=== PATIENT | female | born 1970 | race Caucasian/White ===

== ENCOUNTER 2018-03-16 13:32 | Observation (INO) ==
[2018-03-16] MEDS ORDERED: 0.9 % Sodium Chloride 1,000 ML IVC ONE (13:38)
[2018-03-16 14:13] LABS: Bilirubin,Urine Negative (Negative); Blood,Urine Negative (Negative); Clarity,Urine Clear (Clear); Color,Urine Yellow (Yellow); Glucose,Urine (UA) Normal (Normal); Ketones,Urine Negative (Negative); Leukocyte Esterase,Urine Trace (Negative); Nitrite,Urine Negative (Negative); PH,Urine 8.5 pH Units (5.0-8.0); Protein,Urine 100 mg/dL (Neg-Trace); Specific Gravity,Urine 1.015 (1.010-1.025); Urobilinogen,Urine Normal (Normal)
[2018-03-16 14:15] LABS: Bacteria,Urine Few per hpf (None-Few); Hyaline Casts,Urine None Seen per lpf (None-Few); Squamous Epithelial Cell,Urine Many per lpf (None-Few)
--- NOTE | 2018-03-16 14:47 | Emergency Department Note ---
Disposition Clinical Impression: LLQ abdominal pain Anemia Qualifiers: Anemia type: unspecified type Qualified Code(s): D64.9 - Anemia, unspecified Syncope Qualifiers: Syncope type: unspecified Qualified Code(s): R55 - Syncope and collapse Disposition: Admitted As Inpatient Condition: Fair Time of Disposition: 16:59 Syncope HPI - General Stated Complaint: passed out Time Seen by Provider: 03/16/18 13:36 Source: patient, family, EMS Mode of arrival: EMS Limitations: no limitations Nursing Notes Reviewed: Yes Vital Signs Reviewed: Yes - History of Present Illness HPI Narrative: Patient is a 47-year-old female with a known history of anemia that was sitting outside smoking today when her friend noticed that she sort of slumped to the side and lost consciousness for about 30 seconds. She regained consciousness without incident, did not fall and hit her head, was brought to the emergency department by EMS who noted that the patient was alert and oriented 4 and had stable vitals. Patient states that she has had to have transfusions for symptomatic anemia in the past and is supposed to be having a D&C at some point in the future. Pt has a hx of vaginal bleeding that can last up to three months at a time, although she denies current vaginal bleeding and states she has not had any for the past week. Patient is denying fevers or chills, headache, chest pain, vomiting, diarrhea or constipation, numbness or tingling anywhere. She is endorsing feeling tired, some shortness of breath that she has had for several weeks, nausea, abdominal pain in the right lower quadrant for the last 2 weeks, urinary frequency and some dysuria. Surgical history involves 2 C-sections, she smokes one and a half packs per day and has for 30 years, but denies drinking or drugs. - Related Data Home Medications Medication Instructions Recorded Confirmed Ferrous Sulfate [High Potency Iron] 134 mg PO DAILY 02/17/18 02/17/18 Previous Rx's Medication Instructions Recorded Amoxicillin 875 mg PO BID #20 tablet 02/17/18 Benzonatate [Tessalon] 200 mg PO TID PRN #20 capsule 02/17/18 Magic Mouthwash [Magic Mouthwash 10 ml PO QID PRN #240 ml 02/17/18 BLM] predniSONE [PredniSONE] 20 mg PO BID #10 tablet 02/17/18 Allergies Allergy/AdvReac Type Severity Reaction Status Date / Time gabapentin [From Neurontin] Allergy Difficulty Verified 02/17/18 15:10 Breathing sulfamethoxazole AdvReac See Verified 02/17/18 15:10 [From Bactrim] Comments trimethoprim [From Bactrim] AdvReac See Verified 02/17/18 15:10 Comments All systems ED: reviewed and negative except as stated. Review of Systems: As Per HPI Constitutional: Denies: fever, chills Eyes: Denies: vision change ENT ED: Denies: ear pain Cardiovascular: Reports: dyspnea on exertion, syncope. Denies: chest pain Respiratory: Reports: dyspnea. Denies: cough, wheezes Gastrointestinal: Reports: abdominal pain, nausea. Denies: vomiting, diarrhea, constipation Genitourinary: Reports: dysuria, frequency Neurological: Denies: headache, weakness, numbness, paresthesias Past Medical History - Past Medical History Medical history: Reports: non-contributory, hyperlipidemia Surgical history: Reports: Psychiatric history: Reports: anxiety, depression BORDER GUARD history: Reports: no BORDER GUARD history - Social History Smoking Status: Current every day smoker Smokeless Tobacco Status: No Alcohol use: Reports: none Drug use: Reports: none Physical Exam - General Limitations: no limitations General appearance: alert, in no apparent distress - Head Head exam: atraumatic, normocephalic - Eye Eye exam: Present: normal appearance, PERRL, EOMI, other (conjunctival pallor). Absent: scleral icterus, conjunctival injection - ENT ENT exam: normal exam, normal oropharynx, mucous membranes moist - Neck Neck exam: Present: normal inspection, full ROM - Chest Chest inspection: Present: normal inspection, symmetric chest wall rise. Absent: tenderness - Respiratory Respiratory exam: Present: normal lung sounds bilaterally. Absent: respiratory distress, wheezes - Cardiovascular Cardiovascular exam: Present: regular rate, normal rhythm - Abdominal Exam Abdominal exam: Present: soft, tenderness Abdominal tenderness: Present: RLQ - Extremities Exam Extremities exam: Present: normal inspection, full ROM - Back Exam Back exam: Present: normal inspection, full ROM - Neurological Exam Neurological exam: Present: alert, oriented X3, CN II-XII intact, normal gait - Expanded Neurological Exam Patient oriented to: Present: person, place, time Speech: Present: fluid speech Cranial nerves: EOM function (II, III, IV, ): Normal, facial sensation (V): Normal, facial palsy (VII): Normal, spinal accessory function (XI): Normal, tongue deviation (XII): Normal Cerebellar function: finger to nose: Normal, heel to cole: Normal Motor strength - LUE: 5/5 Motor strength - RUE: 5/5 Motor strength - LLE: 5/5 Motor strength - RLE: 5/5 Sensory exam upper extremity: light touch: Normal Sensory exam lower extremity: light touch: Normal Coma Scale Eye Opening: Spontaneous Coma Scale Motor Response: Obeys Commands Coma Scale Verbal Response: Oriented Coma Scale Total: 15 - Psychiatric Psychiatric exam: Present: normal affect, normal mood - Skin Skin exam: Present: warm, dry, intact Course Course Narrative: Concern for anemia, will get screening labs to include CBC, BMP, EKG. Also head CT. Additionally, pt appears slightly jaundiced, will check hepatic panel and hepatitis panel. Will also obtain type and screen as pt has hx of transfusions. - Reevaluation(s) Reevaluation #1: Hg was 6.9, pt reports that it has been as low as 5 in the past. Expressed my concern that with lack of vaginal bleeding for the last week and LLQ pain that she may be bleeding in her abdomen and that I wanted her to have a CT and pelvic exam. Pt consented to CT, but refused pelvic exam. Ordered 1 unit for transfusion in ED and will place for admission to hospitalist. Time: 15:43 Vital Signs Temperature 98.7 F 03/16/18 13:48 Pulse Rate 80 03/16/18 13:48 Respiratory Rate 18 03/16/18 13:48 Blood Pressure 129/68 03/16/18 13:48 O2 Sat by Pulse Oximetry 99 03/16/18 13:48 Temperature 98.7 F 03/16/18 13:48 Pulse Rate 80 03/16/18 13:48 Respiratory Rate 18 03/16/18 13:48 Blood Pressure 129/68 03/16/18 13:48 O2 Sat by Pulse Oximetry 99 03/16/18 13:48 Oxygen Delivery Oxygen Delivery Room Air Syncope - MDM Narrative Medical decision making narrative: Pt was denying current vaginal bleeding, dark stools, hematemesis, hematuria, hematochezia. Pt's Hg was 6.9 and so she was ordered a unit of blood. Additionally, a CT scan of the abdomen was unrevealing for free fluid in the abdomen. Pt did not have any further syncopal episodes in the ED, vitals remained stable, and pt did not have any further complaints. CT of Abd did reveal a 3.2cm cyst on her left ovary for which a TV US was ordered from the department. Spoke with hospitalist, Dr. Beckham, who agreed to accept the patient for admission and further workup. Pt verbalized understanding and agreement with the plan. Pt was given an opportunity to ask questions and all of her concerns were addressed. - Medical Records Medical records reviewed: Yes I reviewed the patient's medical records. - Lab Data Lab results reviewed: Yes I reviewed the patient's lab results. Result diagrams: 03/16/18 14:21 03/16/18 14:21 Lab Results 03/16/18 03/16/18 03/16/18 Range/Units 13:50 14:21 14:21 WBC 5.9 (4.3-11.1) K/mcL RBC 2.84 L (3.82-4.97) M/mcL Hgb 6.9 L (11.5-15.4) g/dL Hct 23.3 L (35.3-44.9) % MCV 82.0 L (83.0-100.0) fL MCH 24.3 L (28.0-33.3) pg MCHC 29.6 L (31.6-35.5) g/dL RDW 18.0 H (11.5-14.5) % Plt Count 286 (140-400) K/mcL MPV 9.5 (9.4-12.4) fL Immature Gran % 0.3 (0-4) % Seg Neutrophils % 67.4 % Lymphocytes % 21.0 % Monocytes % 9.1 % Eosinophils % 1.5 % Basophils % 0.7 % Neutrophils # 3.9 (1.6-8.9) K/mcL Lymphocytes # 1.2 (0.6-4.6) K/mcL Monocytes # 0.5 (0.0-1.3) K/mcL Eosinophils # 0.1 (0.0-0.6) K/mcL Basophils # 0.0 (0.0-0.2) K/mcL PT 10.6 (9.4-12.1) Seconds INR 0.9 APTT 26.3 (26.0-36.0) Seconds Sodium (136-145) mEq/L Potassium (3.5-5.1) mEq/L Chloride (98-107) mEq/L Carbon Dioxide (23-29) mEq/L BUN (6-20) mg/dL Creatinine (0.60-1.20) mg/dL Est GFR ( Amer) (> 60) Est GFR (Non-Af Amer) (> 60) BUN/Creatinine Ratio (6-26) Glucose (70-105) mg/dL Calculated Osmolality (280-300) Calcium (8.6-10.3) mg/dL Total Bilirubin (0.3-1.0) mg/dL Direct Bilirubin (0.0-0.2) mg/dL Indirect Bilirubin (0.0-1.2) mg/dL AST (13-39) Units/L ALT (7-52) Units/L Alkaline Phosphatase (34-104) Units/L Troponin I (< 0.04) ng/mL Serum Total Protein (6.4-8.9) g/dL Albumin (3.5-5.7) g/dL Globulin (2.4-3.5) g/dL Albumin/Globulin Ratio (1.1-2.2) Urine Color Yellow (Yellow) Urine Clarity Clear (Clear) Urine pH 8.5 H (5.0-8.0) pH Units Ur Specific [place] 1.015 (1.010-1.025) Urine Protein 100 H (Neg-Trace) mg/dL Urine Glucose (UA) Normal (Normal) mg/dL Urine Ketones Negative (Negative) mg/dL Urine Blood Negative (Negative) Urine Nitrite Negative (Negative) Urine Bilirubin Negative (Negative) Urine Urobilinogen Normal (Normal) mg/dL Ur Leukocyte Esterase Trace H (Negative) Urine Microscopic WBC 5-15 H (0-3) per hpf Ur Squamous Epith Cells Many H (None-Few) per lpf Urine Bacteria Few (None-Few) per hpf Hyaline Casts None Seen (None-Few) per lpf Ur Culture Indicated? NO. A (NO) Hepatitis A IgM Ab (Nonreactive) Hep Bs Antigen (Nonreactive) Hep B Core IgM Ab (Nonreactive) Hepatitis C Ab Screen (Nonreactive) Blood Type Antibody Screen Crossmatch 02/05/2903/16/18 03/16/18 Range/Units 14:21 14:21 14:21 WBC (4.3-11.1) K/mcL RBC (3.82-4.97) M/mcL Hgb (11.5-15.4) g/dL Hct (35.3-44.9) % MCV (83.0-100.0) fL MCH (28.0-33.3) pg MCHC (31.6-35.5) g/dL RDW (11.5-14.5) % Plt Count (140-400) K/mcL MPV (9.4-12.4) fL Immature Gran % (0-4) % Seg Neutrophils % % Lymphocytes % % Monocytes % % Eosinophils % % Basophils % % Neutrophils # (1.6-8.9) K/mcL Lymphocytes # (0.6-4.6) K/mcL Monocytes # (0.0-1.3) K/mcL Eosinophils # (0.0-0.6) K/mcL Basophils # (0.0-0.2) K/mcL PT (9.4-12.1) Seconds INR APTT (26.0-36.0) Seconds Sodium 141 (136-145) mEq/L Potassium 4.1 (3.5-5.1) mEq/L Chloride 109 H (98-107) mEq/L Carbon Dioxide 26 (23-29) mEq/L BUN 11 (6-20) mg/dL Creatinine 0.69 (0.60-1.20) mg/dL Est GFR ( Amer) > 60 (> 60) Est GFR (Non-Af Amer) > 60 (> 60) BUN/Creatinine Ratio 16 (6-26) Glucose 113 H (70-105) mg/dL Calculated Osmolality 292 (280-300) Calcium 8.5 L (8.6-10.3) mg/dL Total Bilirubin 0.2 L (0.3-1.0) mg/dL Direct Bilirubin 0.0 (0.0-0.2) mg/dL Indirect Bilirubin 0.2 (0.0-1.2) mg/dL AST 11 L (13-39) Units/L ALT 10 (7-52) Units/L Alkaline Phosphatase 73 (34-104) Units/L Troponin I < 0.03 (< 0.04) ng/mL Serum Total Protein 6.1 L (6.4-8.9) g/dL Albumin 3.6 (3.5-5.7) g/dL Globulin 2.5 (2.4-3.5) g/dL Albumin/Globulin Ratio 1.4 (1.1-2.2) Urine Color (Yellow) Urine Clarity (Clear) Urine pH (5.0-8.0) pH Units Ur Specific [place] (1.010-1.025) Urine Protein (Neg-Trace) mg/dL Urine Glucose (UA) (Normal) mg/dL Urine Ketones (Negative) mg/dL Urine Blood (Negative) Urine Nitrite (Negative) Urine Bilirubin (Negative) Urine Urobilinogen (Normal) mg/dL Ur Leukocyte Esterase (Negative) Urine Microscopic WBC (0-3) per hpf Ur Squamous Epith Cells (None-Few) per lpf Urine Bacteria (None-Few) per hpf Hyaline Casts (None-Few) per lpf Ur Culture Indicated? (NO) Hepatitis A IgM Ab Nonreactive (Nonreactive) Hep Bs Antigen Nonreactive (Nonreactive) Hep B Core IgM Ab Nonreactive (Nonreactive) Hepatitis C Ab Screen Nonreactive (Nonreactive) Blood Type O POSITIVE Antibody Screen NEGATIVE Crossmatch See Detail - Radiology Data Radiology results reviewed: Yes I reviewed the patient's radiology results. Chest X-Ray 03/16/18 13:38 IMPRESSION: Negative chest. D/ / Daisy Vera MD / Daisy Vera MD Interpreting Provider: Daisy Vera MD Head CT 03/16/18 13:38 IMPRESSION: No acute intracranial abnormality. D/ / Georgi Bal MD / Georgi Bal MD Interpreting Provider: Georgi Bal MD Abdomen/Pelvis CT 03/16/18 15:28 IMPRESSION: 1. No acute abnormalities seen in the abdomen or pelvis 2. 3.2 cm left ovarian cyst, follow-up recommendations below 3. Normal appearing gallbladder 4. No obstructive uropathy 5. Normal appearing appendix 6. Stool throughout the majority of the colon suggesting constipation RECOMMENDATIONS: 3.2 cm probably benign ovarian cyst Recommend follow-up pelvic US in 6-12 weeks. Reference: J Am Deanna Radiol 2013;[id number] D/ / Georgi Bal MD / Georgi Bal MD Interpreting Provider: Georgi Bal MD - EKG Data EKG attestation: Yes I reviewed and interpreted this EKG. EKG results narrative: HR 83, rhythm sinus, axis normal. [place] 128, QRS 95, QTc 455. No evidence of LVH. No evidence of ST elevation or depression. Attestation Statement - Attestation Attestation: I, Julio Campos DO, examined this patient [id number] and my medical decision-making was reviewed with Dr. Yvonne Shoemaker, Resident Physician. I agree with the documented findings, disposition and treatment plan as described except to the extent set forth below. Please see my progress notes for details.
[2018-03-16 14:55] LABS: Basophils % 0.7 %; Eosinophils # 0.1 K/mcL (0.0-0.6); Eosinophils % 1.5 %; Hematocrit 23.3 % (35.3-44.9); Hemoglobin 6.9 g/dL (11.5-15.4); Immature Granulocytes % 0.3 % (0-4); Lymphocytes # 1.2 K/mcL (0.6-4.6); Mean Corpuscular HGB Conc 29.6 g/dL (31.6-35.5); Mean Corpuscular Hemoglobin 24.3 pg (28.0-33.3); Mean Platelet Volume 9.5 fL (9.4-12.4); Monocytes # 0.5 K/mcL (0.0-1.3); Monocytes % 9.1 %; Neutrophils # 3.9 K/mcL (1.6-8.9); Platelet Count 286 K/mcL (140-400); Red Blood Count 2.84 M/mcL (3.82-4.97); Segmented Neutrophils % 67.4 %
[2018-03-16 15:12] LABS: INR 0.9; Prothrombin Time 10.6 Seconds (9.4-12.1)
[2018-03-16 15:14] LABS: Activated Partial Thrombo Time 26.3 Seconds (26.0-36.0)
[2018-03-16 15:17] LABS: Troponin I < 0.03 ng/mL (< 0.04)
[2018-03-16 15:23] LABS: Alanine Aminotransferase 10 Units/L (7-52); Albumin 3.6 g/dL (3.5-5.7); Albumin/Globulin Ratio 1.4 (1.1-2.2); Alkaline Phosphatase 73 Units/L (34-104); Aspartate Amino Transferase 11 Units/L (13-39); BUN/Creatinine Ratio 16 (6-26); Bilirubin,Indirect 0.2 mg/dL (0.0-1.2); Bilirubin,Total 0.2 mg/dL (0.3-1.0); Blood Urea Nitrogen 11 mg/dL (6-20); Calcium 8.5 mg/dL (8.6-10.3); Carbon Dioxide 26 mEq/L (23-29); Chloride 109 mEq/L (98-107); Globulin 2.5 g/dL (2.4-3.5); Glucose 113 mg/dL (70-105); Osmolality,Calculated 292 (280-300); Potassium 4.1 mEq/L (3.5-5.1); Sodium 141 mEq/L (136-145); Total Protein 6.1 g/dL (6.4-8.9); eGFR For Non-African Americans > 60 (> 60)
--- NOTE | 2018-03-16 15:23 | Emergency Department Note ---
Disposition Clinical Impression: LLQ abdominal pain Anemia Qualifiers: Anemia type: unspecified type Qualified Code(s): D64.9 - Anemia, unspecified Syncope Qualifiers: Syncope type: unspecified Qualified Code(s): R55 - Syncope and collapse Disposition: Admitted As Inpatient Condition: Fair Time of Disposition: 17:36 General Adult HPI - General Stated complaint: passed out Time Seen by Provider: 03/16/18 13:36 Source: patient, family, EMS Mode of arrival: EMS Limitations: no limitations - History of Present Illness Pain Scale: 5 - Related Data Home Medications Medication Instructions Recorded Confirmed Ferrous Sulfate [High Potency Iron] 134 mg PO DAILY 02/17/18 02/17/18 Previous Rx's Medication Instructions Recorded Amoxicillin 875 mg PO BID #20 tablet 02/17/18 Benzonatate [Tessalon] 200 mg PO TID PRN #20 capsule 02/17/18 Magic Mouthwash [Magic Mouthwash 10 ml PO QID PRN #240 ml 02/17/18 BLM] predniSONE [PredniSONE] 20 mg PO BID #10 tablet 02/17/18 Allergies Allergy/AdvReac Type Severity Reaction Status Date / Time gabapentin [From Neurontin] Allergy Difficulty Verified 02/17/18 15:10 Breathing sulfamethoxazole AdvReac See Verified 02/17/18 15:10 [From Bactrim] Comments trimethoprim [From Bactrim] AdvReac See Verified 02/17/18 15:10 Comments Constitutional: Denies: fever, chills Eyes: Denies: vision change ENT ED: Denies: ear pain Cardiovascular: Reports: dyspnea on exertion, syncope. Denies: chest pain Respiratory: Reports: dyspnea. Denies: cough, wheezes Gastrointestinal: Reports: abdominal pain, nausea. Denies: vomiting, diarrhea, constipation Genitourinary: Reports: dysuria, frequency Neurological: Denies: headache, weakness, numbness, paresthesias Past Medical History - Past Medical History Medical history: Reports: non-contributory, hyperlipidemia Surgical history: Reports: Psychiatric history: Reports: anxiety, depression MANAGER LAW history: Reports: no MANAGER LAW history - Social History Smoking Status: Current every day smoker Smokeless Tobacco Status: No Alcohol use: Reports: none Drug use: Reports: none Physical Exam - General Limitations: no limitations General appearance: alert, in no apparent distress Course Vital Signs Temperature 98.7 F 03/16/18 13:48 Pulse Rate 80 03/16/18 13:48 Respiratory Rate 18 03/16/18 13:48 Blood Pressure 129/68 03/16/18 13:48 O2 Sat by Pulse Oximetry 99 03/16/18 13:48 Temperature 98.7 F 03/16/18 13:48 Pulse Rate 80 03/16/18 13:48 Respiratory Rate 18 03/16/18 13:48 Blood Pressure 129/68 03/16/18 13:48 O2 Sat by Pulse Oximetry 99 03/16/18 13:48 Oxygen Delivery Oxygen Delivery Room Air Medical Decision Making - Lab Data Result diagrams: 03/16/18 14:21 03/16/18 14:21 Lab Results 03/16/18 03/16/18 03/16/18 Range/Units 13:50 14:21 14:21 WBC 5.9 (4.3-11.1) K/mcL RBC 2.84 L (3.82-4.97) M/mcL Hgb 6.9 L (11.5-15.4) g/dL Hct 23.3 L (35.3-44.9) % MCV 82.0 L (83.0-100.0) fL MCH 24.3 L (28.0-33.3) pg MCHC 29.6 L (31.6-35.5) g/dL RDW 18.0 H (11.5-14.5) % Plt Count 286 (140-400) K/mcL MPV 9.5 (9.4-12.4) fL Immature Gran % 0.3 (0-4) % Seg Neutrophils % 67.4 % Lymphocytes % 21.0 % Monocytes % 9.1 % Eosinophils % 1.5 % Basophils % 0.7 % Neutrophils # 3.9 (1.6-8.9) K/mcL Lymphocytes # 1.2 (0.6-4.6) K/mcL Monocytes # 0.5 (0.0-1.3) K/mcL Eosinophils # 0.1 (0.0-0.6) K/mcL Basophils # 0.0 (0.0-0.2) K/mcL PT 10.6 (9.4-12.1) Seconds INR 0.9 APTT 26.3 (26.0-36.0) Seconds Sodium (136-145) mEq/L Potassium (3.5-5.1) mEq/L Chloride (98-107) mEq/L Carbon Dioxide (23-29) mEq/L BUN (6-20) mg/dL Creatinine (0.60-1.20) mg/dL Est GFR ( Amer) (> 60) Est GFR (Non-Af Amer) (> 60) BUN/Creatinine Ratio (6-26) Glucose (70-105) mg/dL Calculated Osmolality (280-300) Calcium (8.6-10.3) mg/dL Total Bilirubin (0.3-1.0) mg/dL Direct Bilirubin (0.0-0.2) mg/dL Indirect Bilirubin (0.0-1.2) mg/dL AST (13-39) Units/L ALT (7-52) Units/L Alkaline Phosphatase (34-104) Units/L Troponin I (< 0.04) ng/mL Serum Total Protein (6.4-8.9) g/dL Albumin (3.5-5.7) g/dL Globulin (2.4-3.5) g/dL Albumin/Globulin Ratio (1.1-2.2) Urine Color Yellow (Yellow) Urine Clarity Clear (Clear) Urine pH 8.5 H (5.0-8.0) pH Units Ur Specific [place] 1.015 (1.010-1.025) Urine Protein 100 H (Neg-Trace) mg/dL Urine Glucose (UA) Normal (Normal) mg/dL Urine Ketones Negative (Negative) mg/dL Urine Blood Negative (Negative) Urine Nitrite Negative (Negative) Urine Bilirubin Negative (Negative) Urine Urobilinogen Normal (Normal) mg/dL Ur Leukocyte Esterase Trace H (Negative) Urine Microscopic WBC 5-15 H (0-3) per hpf Ur Squamous Epith Cells Many H (None-Few) per lpf Urine Bacteria Few (None-Few) per hpf Hyaline Casts None Seen (None-Few) per lpf Ur Culture Indicated? NO. A (NO) Hepatitis A IgM Ab (Nonreactive) Hep Bs Antigen (Nonreactive) Hep B Core IgM Ab (Nonreactive) Hepatitis C Ab Screen (Nonreactive) Blood Type Antibody Screen Crossmatch 03/16/18 03/16/18 03/16/18 Range/Units 14:21 14:21 14:21 WBC (4.3-11.1) K/mcL RBC (3.82-4.97) M/mcL Hgb (11.5-15.4) g/dL Hct (35.3-44.9) % MCV (83.0-100.0) fL MCH (28.0-33.3) pg MCHC (31.6-35.5) g/dL RDW (11.5-14.5) % Plt Count (140-400) K/mcL MPV (9.4-12.4) fL Immature Gran % (0-4) % Seg Neutrophils % % Lymphocytes % % Monocytes % % Eosinophils % % Basophils % % Neutrophils # (1.6-8.9) K/mcL Lymphocytes # (0.6-4.6) K/mcL Monocytes # (0.0-1.3) K/mcL Eosinophils # (0.0-0.6) K/mcL Basophils # (0.0-0.2) K/mcL PT (9.4-12.1) Seconds INR APTT (26.0-36.0) Seconds Sodium 141 (136-145) mEq/L Potassium 4.1 (3.5-5.1) mEq/L Chloride 109 H (98-107) mEq/L Carbon Dioxide 26 (23-29) mEq/L BUN 11 (6-20) mg/dL Creatinine 0.69 (0.60-1.20) mg/dL Est GFR ( Amer) > 60 (> 60) Est GFR (Non-Af Amer) > 60 (> 60) BUN/Creatinine Ratio 16 (6-26) Glucose 113 H (70-105) mg/dL Calculated Osmolality 292 (280-300) Calcium 8.5 L (8.6-10.3) mg/dL Total Bilirubin 0.2 L (0.3-1.0) mg/dL Direct Bilirubin 0.0 (0.0-0.2) mg/dL Indirect Bilirubin 0.2 (0.0-1.2) mg/dL AST 11 L (13-39) Units/L ALT 10 (7-52) Units/L Alkaline Phosphatase 73 (34-104) Units/L Troponin I < 0.03 (< 0.04) ng/mL Serum Total Protein 6.1 L (6.4-8.9) g/dL Albumin 3.6 (3.5-5.7) g/dL Globulin 2.5 (2.4-3.5) g/dL Albumin/Globulin Ratio 1.4 (1.1-2.2) Urine Color (Yellow) Urine Clarity (Clear) Urine pH (5.0-8.0) pH Units Ur Specific [place] (1.010-1.025) Urine Protein (Neg-Trace) mg/dL Urine Glucose (UA) (Normal) mg/dL Urine Ketones (Negative) mg/dL Urine Blood (Negative) Urine Nitrite (Negative) Urine Bilirubin (Negative) Urine Urobilinogen (Normal) mg/dL Ur Leukocyte Esterase (Negative) Urine Microscopic WBC (0-3) per hpf Ur Squamous Epith Cells (None-Few) per lpf Urine Bacteria (None-Few) per hpf Hyaline Casts (None-Few) per lpf Ur Culture Indicated? (NO) Hepatitis A IgM Ab Nonreactive (Nonreactive) Hep Bs Antigen Nonreactive (Nonreactive) Hep B Core IgM Ab Nonreactive (Nonreactive) Hepatitis C Ab Screen Nonreactive (Nonreactive) Blood Type O POSITIVE Antibody Screen NEGATIVE Crossmatch See Detail Critical Care Time Critical Care Time: Yes Total Critical Care Time: 35 Attestation: Critical care performed: Time is exclusive of separately billable procedures. Time includes: direct patient care, patient reassessment, coordination of patient care, interpretation of data (laboratory data, radiology data, and respiratory data), review of patient's medical records, medical consultation and documentation of patient care. Procedures included in critical care time: Procedures excluded from critical care time: Attestation Statement - Attestation Attestation: I, Julio Campos DO, examined this patient [id number] and my medical decision-making was reviewed with Dr. Yvonne Shoemaker, Resident Physician. I agree with the documented findings, disposition and treatment plan as described except to the extent set forth below. Please see my progress notes for details. 47-year-old female presents emergency room for evaluation of syncopal event. Patient was at the [facility] today to be evaluated. [place] and [place] not [place] here. She had pain in her left lower quadrant abdominal pain. Denies any fevers or chills. She has had vaginal discharge and bleeding for several weeks. She is supposedly being seen by an outside provider for evaluation of this. Patient denies any other symptoms or complaints prior to the events here today. She has had no chest pain, shortness of breath. Denies any fevers or chills. Denies any nausea vomiting or diarrhea. No headache no vision change at this time. Vital signs are stable on presentation. Patient is alert she is oriented she speaking in full sentences. Head is atraumatic. Pupils are equal round reactive. Extraocular muscles are intact. Oropharynx is patent. 10 conjunctiva appears to be slightly pale. She has no signs of stridor or trismus. Lungs are clear heart is regular. Abdomen is soft. No guarding no rigidity. She has mild tenderness in left lower quadrant of the abdomen that radiates up into the left flank. She has no specific history of renal stones or colic. She does have a history of ovarian cyst. The pain is been present for approximate 7 days according to her. She has had intermittent vaginal bleeding and discharge but none here over the last 24 hours. Extremities are otherwise unremarkable and normal. Patient transitioned herself from the bed to the cot without any difficulty after EMS transportation. Concern is noted for possible anemia with symptomatically presentation causing syncope. CT imaging of the head along with labs including CBC chemistry troponin and type and screen will be ordered. Urinalysis and urine test will also be collected. Fluids will be given. Function testing along with hepatitis panel also be added on. Patient is otherwise asymptomatic at this point. We will evaluate the abdomen was CT imaging at this time to rule out any other potential etiologies including intra-abdominal infection free fluid or ovarian related issues. She does not show any acute signs of tubo-ovarian abscess, ectopic , ovarian cyst or torsion at this point. We will continue to monitor until treatment course have been established. See detailed documentation of the physical exam, medical intervention, medical decision- making and disposition in the resident physician's note. No critical care p rovider the patient's treatment course at this time. 1500 Patient is found to have anemia with a hemoglobin of 6.9. Pelvic examination was offered secondary to vaginal bleeding. Patient denies any need for vaginal examination at this time. Patient will allow for CT imaging of the abdomen. Disposition will be admission for symptomatic control of the anemia as well as evaluation for syncope. Otherwise patient is stable. Patient will be transfused blood. Consent was provided. 35 minutes of critical care applied. 1700 Patient has a 3.2 cm cystic lesion on the ovary to the left ovary at this time. Patient does not show any clinical findings are concerning for torsion based on the timeframe as well as physical exam but the patient will have transvaginal ultrasound completed. Patient is been ordered 1 unit of blood for transfusion. The hospitalist Dr. Baig reviewed the case. He will follow up on the ultrasound and contact OB if need be. There is no free fluid in the abdomen. Patient has long-standing history of anemia secondary to vaginal bleeding. She deferred a pelvic examination at this time. Patient is otherwise stable. Admission process to be established. Patient will be monitored here in the emergency department until admission is completed
[2018-03-16 15:45] LABS: Hepatitis B Surface Antigen Nonreactive (Nonreactive)
[2018-03-16 16:13] LABS: Hepatitis C Virus Antibody Nonreactive (Nonreactive)
[2018-03-16 16:14] LABS: Hepatitis B Core IgM Nonreactive (Nonreactive)
[2018-03-16 16:15] LABS: Hepatitis A Antibody IgM Nonreactive (Nonreactive)
[2018-03-16] MEDS ORDERED: *HR* Morphine 2 MG/ML SYRINGE IVP ONE ×2 (17:05→20:57)
--- NOTE | 2018-03-16 17:05 | Internal Med History&Physical ---
<Ten Solis - Last Filed: 03/16/18 19:38> Date of Encounter: 03/16/18 Internal Medicine - H&P: HPI History of present illness: Ms. Plata is a 47 year old female Internal Medicine - H&P: Meds Amoxicillin 875 mg PO BID #20 tablet 02/17/18 [Rx] Benzonatate [Tessalon] 200 mg PO TID PRN #20 capsule 02/17/18 [Rx] Ferrous Sulfate [High Potency Iron] 134 mg PO DAILY 02/17/18 [History] Magic Mouthwash [Magic Mouthwash BLM] 10 ml PO QID PRN #240 ml 02/17/18 [Rx] predniSONE [PredniSONE] 20 mg PO BID #10 tablet 02/17/18 [Rx] Allergy/AdvReac Type Severity Reaction Status Date / Time gabapentin [From Neurontin] Allergy Difficulty Verified 02/17/18 15:10 Breathing sulfamethoxazole AdvReac See Verified 02/17/18 15:10 [From Bactrim] Comments trimethoprim [From Bactrim] AdvReac See Verified 02/17/18 15:10 Comments All Systems PM: A 10-system review of systems was performed and is negative for pertinent findings except as documented above in the HPI. - Constitutional Vitals: Temp Pulse Resp BP Pulse Ox 98.2 F 69 18 106/62 99 03/16/18 19:32 03/16/18 19:32 03/16/18 19:32 03/16/18 19:32 03/16/18 19:32 Internal Med - H&P Results - Labs CBC & Chem 7: 03/16/18 14:21 03/16/18 14:21 Labs: Short CBC 03/16/18 Range/Units 14:21 WBC 5.9 (4.3-11.1) K/mcL Hgb 6.9 L (11.5-15.4) g/dL Hct 23.3 L (35.3-44.9) % Plt Count 286 (140-400) K/mcL Neutrophils # 3.9 (1.6-8.9) K/mcL BMP 03/16/18 14:21 Sodium 141 Potassium 4.1 Chloride 109 H Carbon Dioxide 26 BUN 11 Creatinine 0.69 Glucose 113 H Calcium 8.5 L Cardiac Enzymes 02/04/19 Range/Units 14:21 Troponin I < 0.03 (< 0.04) ng/mL Liver Function 03/16/18 Range/Units 14:21 Total Bilirubin 0.2 L (0.3-1.0) mg/dL Direct Bilirubin 0.0 (0.0-0.2) mg/dL AST 11 L (13-39) Units/L ALT 10 (7-52) Units/L Alkaline Phosphatase 73 (34-104) Units/L Albumin 3.6 (3.5-5.7) g/dL Urine 03/16/18 Range/Units 13:50 Urine Color Yellow (Yellow) Urine Clarity Clear (Clear) Urine pH 8.5 H (5.0-8.0) pH Units Ur Specific [place] 1.015 (1.010-1.025) Urine Protein 100 H (Neg-Trace) mg/dL Urine Glucose (UA) Normal (Normal) mg/dL - Impressions ITS Impressions Chest X-Ray 03/16/18 13:38 IMPRESSION: Negative chest. D/ / Daisy Vera MD / Daisy Vera MD Interpreting Provider: Daisy Vera MD Head CT 03/16/18 13:38 IMPRESSION: No acute intracranial abnormality. D/ / Georgi Bal MD / Georgi Bal MD Interpreting Provider: Georgi Bal MD Abdomen/Pelvis CT 03/16/18 15:28 IMPRESSION: 1. No acute abnormalities seen in the abdomen or pelvis 2. 3.2 cm left ovarian cyst, follow-up recommendations below 3. Normal appearing gallbladder 4. No obstructive uropathy 5. Normal appearing appendix 6. Stool throughout the majority of the colon suggesting constipation RECOMMENDATIONS: 3.2 cm probably benign ovarian cyst Recommend follow-up pelvic US in 6-12 weeks. Reference: J Am Deanna Radiol 2013;10:[id number] D/ / Georgi Bal MD / Georgi Bal MD Interpreting Provider: Georgi Bal MD Abdomen/Pelvis/Transvag US 03/16/18 16:54 IMPRESSION: 1. No ovarian torsion. 2. 6.7 cm x 3.8 cm x 2.8 cm lesion appearing centered in the uterine cervix, suspicious for cervical malignancy. Endometrial malignancy with cervical extension could appear similar. Recommend gynecology evaluation with consideration for nonemergent MRI. 3. 4.1 cm x 2.8 cm x 2.9 cm simple left ovarian cyst is likely physiologic. No follow-up is recommended. 4. Uterine fibroids measuring up to 2.3 cm as above. D/ / Georgi Laird MD / Georgi Laird MD Interpreting Provider: Georgi Laird MD - Assessment and plan (1) Anemia Current Visit: Yes Status: Suspected Qualifiers: Anemia type: iron deficiency Iron deficiency anemia type: chronic blood loss Qualified Code(s): D50.0 - Iron deficiency anemia secondary to blood loss (chronic) (2) Syncope Current Visit: Yes Status: Acute Qualifiers: Syncope type: unspecified Qualified Code(s): R55 - Syncope and collapse (3) Tobacco dependence Current Visit: Yes Status: Acute (4) DVT prophylaxis Current Visit: Yes Status: Acute (5) Left ovarian cyst Current Visit: Yes Status: Acute (6) Tobacco abuse Current Visit: Yes Status: Chronic - Time Spent With Patient Total time spent is greater than 50% in coordination of care (as documented) at patient's floor/unit and/or counseling patient: - Attending Attestation I examined this patient and my medical decision-making was reviewed with the Resident Physician on 03/16/18. I agree with the documented findings, disposition and treatment plan as described except to the extent set forth below. Ms Plata is a 47 y/o female with hx of menorrhagia presented to ED with syncopal episode. She was visiting a friend when she had syncope in a chair on porch. No warning. No CP or SOB. Brought to ED and found to be anemic. Has had issues with anemia recently and was being evaluated by tobacco flavorer for menorrhagia. Currently she feels tired and has LLQ pain. CT shows ovarian cyst. Exam alert Comfortable Mucus membranes dry Heart reg and not tachy Lungs clear ABd soft. Tender LLQ without peritoneal signs. No edema Moves all extremities Normocephalic I/P 1. Syncope - work up ordered 2. Anemia due to chronic blood loss 3. Menorrhagia Further diagnoses and plan as above. <Gomez Fragoso - Last Filed: 03/16/18 20:14> Date of Encounter: 03/16/18 Time of Encounter: 17:02 Internal Medicine - H&P: HPI Chief complaint: Syncope Admitted From: Emergency Dept Plans for Post Hospital Care: Home History of present illness: Ms. Plata is a 47 year old female with a past medical history of menorrhagia, hyperlipidemia, tobacco dependence, and iron supplementation for chronic anemia presented to the ED with her friend after a syncopal episode. Patient reports she was sitting on the porch with her friend smoking a cigarette and and had a witnessed syncopal episode lasting about 30 seconds where she became limp and had loss of consciousness while sitting. Patient reported feeling palpitations, flushed, and hot before passing out. She regained consciousness spontaneously and denies any associated tongue trauma, urinary/fecal incontinence, or seizure like activity. Patient was found to be anemic in the emergency room with initial Hgb was 6.9 and was transfused 1 unit of blood. She last received 5 units PRBCs in January due to menorrhagia. Patient reports associated left- sided abdominal pain radiating to her left flank, urinary frequency, and urinary urgency. She denies current vaginal bleeding, dark stools, hematemesis, hematuria, or hematochezia. In the ED, CT abd/plv negative for source of bleeding. Patient is scheduled for a D&C an endometrial biopsy on 03/18/18 in [place], [place]. Past Med Surg Social Fam HX - Past Medical History Medical history: non-contributory, hyperlipidemia Additional medical history: chronic back pain Psychiatric history: anxiety, depression - Past Surgical History Surgical History: (x2) Additional surgical history: Laminiectomy, D&C - Social History Smoking Status: Current every day smoker Smokeless Tobacco Status: No Alcohol use: none Drug use: none Current living situation: Home - Independent - Family History Mother Living Status: Age at : 61 Cause of : Dementia Hx Family Neurologic Disorders: Yes (Dementia) Father Living Status: Still Living Hx Family Cardiac Disorders: No All Systems PM: A 10-system review of systems was performed and is negative for pertinent findings except as documented above in the HPI. - Constitutional Constitutional: fatigue, lethargy, weakness, no chills, no falls, no malaise - EENT Eyes: no blurry vision, no diplopia Nose, mouth and throat: no sinus pain, no sore throat - Cardiovascular Cardiovascular ROS IM: palpitations, syncope, no chest pain, no edema - Respiratory Respiratory: no cough, no dyspnea on exertion, no chest congestion - Gastrointestinal Gastrointestinal: abdominal pain, constipation, no cramping, no diarrhea, no heartburn, no nausea, no vomiting - Genitourinary Genitourinary: dysmenorrhea, urinary frequency, urinary urgency Menstruation: period heavy - Musculoskeletal Musculoskeletal ROS IM: back pain, no numbness, no tingling - Integumentary Integumentary IM: no erythema, no new lesions, no rash, no jaundice - Neurological Neurological ROS: weakness, no confusion, no convulsions, no headache(s), no numbness, no tingling - Psychiatric Psychiatric: no anxiety, no depression - Endocrine Endocrine IM: fatigue, polyuria, no polyphagia - Hematologic/Lymphatic Hematologic/Lymphatic: no easy bleeding, no easy bruising - Constitutional Vitals: Temp Pulse Resp BP Pulse Ox 98.7 F 80 18 129/68 99 03/16/18 13:48 03/16/18 13:48 03/16/18 13:48 03/16/18 13:48 03/16/18 13:48 General appearance: Present: cooperative, A&O X 3, pleasant, obese, answers questions appropriately Exam: awake - Head Head exam: Present: atraumatic, normocephalic - Eye Eye exam: Present: EOMI, conjuntiva pink (Pale), sclera anicteric - ENT ENT exam: Present: mucous membranes dry, normal oropharynx - Neck Neck exam general surgery: Present: supple, trachea midline. Absent: lymphadenopathy - Respiratory Respiratory exam: Present: CTAB. Absent: accessory muscle use, rales, rhonchi, wheezes - Cardiovascular Cardiovascular exam: Present: RRR, +S1, +S2. Absent: diastolic murmur, gallop, rubs, systolic murmur - GI/Abdominal GI/Abdominal exam: Present: normal bowel sounds, soft, tenderness (LLQ), no peritoneal signs. Absent: distended - Extremities Exam Extremities exam: Present: normal capillary refill, warm, radial pulses palpable and symmetrical. Absent: calf tenderness, cyanotic, pedal edema - Back Exam Back exam: Present: CVA tenderness (L), normal inspection, tenderness - Neurological Exam Neurological exam: Present: alert, CN II-XII intact, oriented X3, no focal deficits. Absent: facial droop, speech deficit - Psychiatric Psychiatric exam: Present: normal affect, normal mood - Skin Skin exam: Present: dry, intact, pallor Internal Med - H&P Results - Labs CBC & Chem 7: 03/16/18 14:21 03/16/18 14:21 Labs: Short CBC 03/16/18 Range/Units 14:21 WBC 5.9 (4.3-11.1) K/mcL Hgb 6.9 L (11.5-15.4) g/dL Hct 23.3 L (35.3-44.9) % Plt Count 286 (140-400) K/mcL Neutrophils # 3.9 (1.6-8.9) K/mcL BMP 03/16/18 14:21 Sodium 141 Potassium 4.1 Chloride 109 H Carbon Dioxide 26 BUN 11 Creatinine 0.69 Glucose 113 H Calcium 8.5 L Cardiac Enzymes 03/16/18 Range/Units 14:21 Troponin I < 0.03 (< 0.04) ng/mL Liver Function 03/16/18 Range/Units 14:21 Total Bilirubin 0.2 L (0.3-1.0) mg/dL Direct Bilirubin 0.0 (0.0-0.2) mg/dL AST 11 L (13-39) Units/L ALT 10 (7-52) Units/L Alkaline Phosphatase 73 (34-104) Units/L Albumin 3.6 (3.5-5.7) g/dL Urine 03/16/18 Range/Units 13:50 Urine Color Yellow (Yellow) Urine Clarity Clear (Clear) Urine pH 8.5 H (5.0-8.0) pH Units Ur Specific [place] 1.015 (1.010-1.025) Urine Protein 100 H (Neg-Trace) mg/dL Urine Glucose (UA) Normal (Normal) mg/dL - EKG Data -: EKG Interpreted by Myself EKG shows normal: sinus rhythm (HR 83, rhythm sinus, axis normal. CA 128, QRS 95, QTc 455. No evidence of LVH. No evidence of ST elevation or depression. ) - Impressions ITS Impressions Chest X-Ray 03/16/18 13:38 IMPRESSION: Negative chest. D/ / Daisy Vera MD / Daisy Vera MD Interpreting Provider: Daisy Vera MD Head CT 03/16/18 13:38 IMPRESSION: No acute intracranial abnormality. D/ / Georgi Bal MD / Georgi Bal MD Interpreting Provider: Georgi Bal MD Abdomen/Pelvis CT 03/16/18 15:28 IMPRESSION: 1. No acute abnormalities seen in the abdomen or pelvis 2. 3.2 cm left ovarian cyst, follow-up recommendations below 3. Normal appearing gallbladder 4. No obstructive uropathy 5. Normal appearing appendix 6. Stool throughout the majority of the colon suggesting constipation RECOMMENDATIONS: 3.2 cm probably benign ovarian cyst Recommend follow-up pelvic US in 6-12 weeks. Reference: J Am Deanna Radiol 2013;10:[id number] D/ / Georgi Bal MD / Georgi Bal MD Interpreting Provider: Georgi Bal MD - Assessment and plan (1) Syncope Current Visit: Yes Status: Acute Assessment and plan: Etiology may be related to symptomatic anemia. CT head revealed no acute intracranial abnormality. Echo and Carotid Doppler pending Continue telemetry monitoring Qualifiers: Syncope type: unspecified Qualified Code(s): R55 - Syncope and collapse (2) Anemia Current Visit: Yes Status: Suspected Assessment and plan: Patient last received 5 units PRBCs in January due to menorrhagia. Patient denies current vaginal bleeding, dark stools, hematemesis, hematuria, or hematochezia. CT abd/plv negative for source of bleeding Initial Hgb was 6.9 Transfused 1 unit of blood. Monitor H&H q8h Patient takes iron supplementation at home. Iron studies pending Patient is scheduled for a D&C an endometrial biopsy on 03/18/18 Qualifiers: Anemia type: iron deficiency Iron deficiency anemia type: chronic blood loss (3) Menorrhagia Current Visit: Yes Status: Chronic Assessment and plan: Urine test pending Patient is scheduled for a D&C an endometrial biopsy on 03/18/18 Outpatient management Qualifiers: Menorrahagia type: with irregular cycle Qualified Code(s): N92.1 - Excessive and frequent menstruation with irregular cycle (4) Left ovarian cyst Current Visit: Yes Status: Acute Assessment and plan: CT abd/plv revealed 3.2 cm left ovarian cyst, recommend follow-up pelvic U/S in 6-12 weeks. Outpatient management (5) HLD (hyperlipidemia) Current Visit: Yes Status: Chronic Assessment and plan: Lipid panel reviewed. Patient has a 2.1% calculated 10-year risk of heart disease or stroke, therefore there is no indication to be on a statin or statin per ACC/AHA guidelines. Qualifiers: Hyperlipidemia type: unspecified Qualified Code(s): E78.5 - Hyperlipidemia, unspecified (6) Tobacco dependence Current Visit: Yes Status: Acute Assessment and plan: Tobacco cessation discussed Nicotine patch ordered (7) DVT prophylaxis Current Visit: Yes Status: Acute Assessment and plan: EPCDs - Time Spent With Patient Total time spent is greater than 50% in coordination of care (as documented) at patient's floor/unit and/or counseling patient:
[2018-03-16] MEDS ORDERED: Ondansetron 4 MG/2 ML VIAL IVP PRN (17:15)
[2018-03-16] MEDS ORDERED: Naloxone 0.4 MG/ML INJ IVP PRN (17:15)
[2018-03-16 18:03] LABS: Iron < 10 mcg/dL (50-170); Magnesium 2.1 mg/dL (1.6-2.6); Transferrin 329 mg/dL (203-362)
[2018-03-16 18:27] LABS: Folate 11.9 ng/mL (3.0-16.0)
[2018-03-16] MEDS ORDERED: 0.9 % Sodium Chloride 500 ML ONE (19:17)
[2018-03-16 19:30] LABS: Chol/HDL Ratio 5.2 (0-4.9); Cholesterol 186 mg/dL (< 200); HDL Cholesterol 36 mg/dL (40-59); LDL Cholesterol,Calculated 133 mg/dL (0-99); Triglycerides 86 mg/dL (< 150)
[2018-03-16] MEDS ORDERED: 0.9 % Sodium Chloride 1,000 ML IVC SCH (20:00)
[2018-03-16] MEDS: Nicotine 14 MG PATCH.TD24 TD SCH (22:18)
[2018-03-17 00:10] LABS: Hematocrit 24.9 % (35.3-44.9); Hemoglobin 7.6 g/dL (11.5-15.4)
[2018-03-17] MEDS: Acetaminophen 325 MG TABLET PO PRN ×2 (01:13→09:24)
[2018-03-17] MEDS ORDERED: traMADol 50 MG TABLET PO ONE ×2 (03:47→13:20)
--- NOTE | 2018-03-17 07:34 | Internal Med Progress Note ---
Hospitalist Progress Note - Encounter Date of Encounter: 03/17/18 Time of Encounter: 07:32 - Subjective Interval History: The patient was seen and examined at bedside. She is lying in bed comfortably upon my arrival. She denies any current symptoms of dizziness, chest pain, shortness of breath. She does have some left-sided lower quadrant abdominal p ain with movement. She denies any vaginal bleeding, dark stools bloody stools, dark or bloody vomiting. We did discuss the results of her transvaginal ultrasound. She cannot remember if she has had an abnormal Pap smear, however she describes that her [facility]STRUMENT ENGINEER in [place] was attempting to perform an endometrial biopsy but was unable to because something was blocking the passage of the instrument into her cervix. She is scheduled on March 18 for a D&C and endometrial biopsy and further investigation of the mass in her cervix. - Exam Vitals: Temp Pulse Resp BP Pulse Ox 97.9 F 62 16 105/61 96 03/17/18 06:41 03/17/18 06:41 03/17/18 06:41 03/17/18 06:41 03/17/18 06:41 Exam: General: alert and oriented, WD/WN in NAD HEENT: NC/AT, PERRLA, EOMI, mucous membranes dry, pale mucosa and conjunctiva Cardio: RRR w/o MRG, pulses 2+ Respiratory: LCTAB, no cyanosis or clubbing Abd: soft, mild tenderness with palpation of the LLQ, no guarding or rigidity, bs present Extremities: non-tender, no edema, pulses 2+ Skin: warm, dry, intact, pale Neuro: alert and oriented, no acute deficits Psych: normal mood and affect - Assessment and Plan (1) Anemia Current Visit: Yes Status: Suspected Assessment and Plan: Patient last received 5 units PRBCs in January due to menorrhagia. Patient denies current vaginal bleeding, dark stools, hematemesis, hematuria, or hematochezia. CT abd/plv negative for source of bleeding Patient is scheduled for a D&C an endometrial biopsy on 03/18/18 Initial Hgb was 6.9 Transfused 1 unit of blood with repeat hgb of 7.6 Iron <10, transferrin 329 Plan: -Monitor H&H q8h -Continue iron supplements (2) Syncope Current Visit: Yes Status: Acute Assessment and Plan: Etiology may be related to symptomatic anemia. CT head revealed no acute intracranial abnormality. Denies current dizziness. Plan: - Echo -Carotid Doppler -Continue telemetry monitoring (3) Menorrhagia Current Visit: Yes Status: Chronic Assessment and Plan: Pt not currently experiencing vaginal bleeding Patient is scheduled for a D&C an endometrial biopsy on 03/18/18 Outpatient management (4) Mass of uterine cervix determined by ultrasound Current Visit: Yes Status: Acute Assessment and Plan: Transvaginal US demonstrates 6.7 cm x 3.8 cm x 2.8 cm lesion appearing centered in the uterine cervix, suspicious for cervical malignancy. Endometrial malignancy with cervical extension could appear similar. Pt unsure of abnormal pap history. She follows with [facility] at [facility] who has attempted endometrial bx in the office, but met resistance passing instrument through cervix. She is scheduled for D/C with endometrial bx 03/18. Further management with [facility] as scheduled. (5) Left ovarian cyst Current Visit: Yes Status: Acute Assessment and Plan: 4.1 cm x 2.8 cm x 2.9 cm simple left ovarian cyst is likely physiologic. (6) Uterine fibroid Current Visit: Yes Status: Acute Assessment and Plan: Uterine fibroids measuring up to 2.3 cm, likely contributing to menorrhagia and vaginal bleeding. Further workup as schedule in the outpatient setting. (7) HLD (hyperlipidemia) Current Visit: Yes Status: Chronic Assessment and Plan: Lipid panel reviewed. Patient has a 2.1% calculated 10-year risk of heart disease or stroke, therefore there is no indication to be on a statin or statin per ACC/AHA guidelines. (8) Tobacco abuse Current Visit: Yes Status: Chronic Assessment and Plan: Encouraged smoking cessation. Plan: -Continue nicotine patch - Time Spent with Patient Total time spent is greater than 50% in coordination of care (as documented) at patient's floor/unit and/or counseling patient: Internal Medicine: Result - Labs CBC & Chem 7: 03/16/18 23:58 03/16/18 14:21 Labs: Short CBC 03/16/18 03/16/18 Range/Units 14:21 23:58 WBC 5.9 (4.3-11.1) K/mcL Hgb 6.9 L 7.6 L (11.5-15.4) g/dL Hct 23.3 L 24.9 L (35.3-44.9) % Plt Count 286 (140-400) K/mcL Neutrophils # 3.9 (1.6-8.9) K/mcL BMP 03/16/18 14:21 Sodium 141 Potassium 4.1 Chloride 109 H Carbon Dioxide 26 BUN 11 Creatinine 0.69 Glucose 113 H Calcium 8.5 L Cardiac Enzymes 03/16/18 Range/Units 14:21 Troponin I < 0.03 (< 0.04) ng/mL Liver Function 03/16/18 Range/Units 14:21 Total Bilirubin 0.2 L (0.3-1.0) mg/dL Direct Bilirubin 0.0 (0.0-0.2) mg/dL AST 11 L (13-39) Units/L ALT 10 (7-52) Units/L Alkaline Phosphatase 73 (34-104) Units/L Albumin 3.6 (3.5-5.7) g/dL Urine 03/16/18 Range/Units 13:50 Urine Color Yellow (Yellow) Urine Clarity Clear (Clear) Urine pH 8.5 H (5.0-8.0) pH Units Ur Specific [place] 1.015 (1.010-1.025) Urine Protein 100 H (Neg-Trace) mg/dL Urine Glucose (UA) Normal (Normal) mg/dL - ABG Interpretation ABG results: PT/INR, D-dimer PT 10.6 Seconds (9.4-12.1) 03/16/18 14:21 - Impressions Impressions Chest X-Ray 03/16/18 13:38 IMPRESSION: Negative chest. D/ / Daisy Vera MD / Daisy Vera MD Interpreting Provider: Daisy Vera MD Head CT 03/16/18 13:38 IMPRESSION: No acute intracranial abnormality. D/ / Georgi Bal MD / Georgi Bal MD Interpreting Provider: Georgi Bal MD Abdomen/Pelvis CT 03/16/18 15:28 IMPRESSION: 1. No acute abnormalities seen in the abdomen or pelvis 2. 3.2 cm left ovarian cyst, follow-up recommendations below 3. Normal appearing gallbladder 4. No obstructive uropathy 5. Normal appearing appendix 6. Stool throughout the majority of the colon suggesting constipation RECOMMENDATIONS: 3.2 cm probably benign ovarian cyst Recommend follow-up pelvic US in 6-12 weeks. Reference: J Am Deanna Radiol 2013;10:[id number] D/ / Georgi Bal MD / Georgi Bal MD Interpreting Provider: Georgi Bal MD Abdomen/Pelvis/Transvag US 03/16/18 16:54 IMPRESSION: 1. No ovarian torsion. 2. 6.7 cm x 3.8 cm x 2.8 cm lesion appearing centered in the uterine cervix, suspicious for cervical malignancy. Endometrial malignancy with cervical extension could appear similar. Recommend gynecology evaluation with consideration for nonemergent MRI. 3. 4.1 cm x 2.8 cm x 2.9 cm simple left ovarian cyst is likely physiologic. No follow-up is recommended. 4. Uterine fibroids measuring up to 2.3 cm as above. D/ / Georgi Laird MD / Georgi Laird MD Interpreting Provider: Georgi Laird MD Consult Discharge Plan - Plan (1) Anemia Qualifiers: Anemia type: iron deficiency Iron deficiency anemia type: chronic blood loss (2) Syncope Qualifiers: Syncope type: unspecified Qualified Code(s): R55 - Syncope and collapse (3) Menorrhagia Qualifiers: Menorrahagia type: with irregular cycle Qualified Code(s): N92.1 - Excessive and frequent menstruation with irregular cycle (7) HLD (hyperlipidemia) Qualifiers: Hyperlipidemia type: unspecified Qualified Code(s): E78.5 - Hyperlipidemia, unspecified
[2018-03-17 09:09] LABS: Hematocrit 24.9 % (35.3-44.9); Hemoglobin 7.6 g/dL (11.5-15.4); Mean Corpuscular HGB Conc 30.5 g/dL (31.6-35.5); Mean Corpuscular Hemoglobin 25.4 pg (28.0-33.3); Mean Corpuscular Volume 83.3 fL (83.0-100.0); Mean Platelet Volume 9.6 fL (9.4-12.4); Platelet Count 258 K/mcL (140-400); Red Blood Count 2.99 M/mcL (3.82-4.97); Red Cell Distribution Width 17.7 % (11.5-14.5)
[2018-03-17] MEDS: Nicotine 14 MG PATCH.TD24 TD SCH (09:25)
[2018-03-17 09:28] LABS: BUN/Creatinine Ratio 13 (6-26); Blood Urea Nitrogen 8 mg/dL (6-20); Calcium 8.3 mg/dL (8.6-10.3); Carbon Dioxide 24 mEq/L (23-29); Chloride 109 mEq/L (98-107); Glucose 102 mg/dL (70-105); Osmolality,Calculated 283 (280-300); Potassium 3.9 mEq/L (3.5-5.1); Sodium 137 mEq/L (136-145); eGFR For Non-African Americans > 60 (> 60)
[2018-03-17 12:42] VITALS: BP 122/75
[2018-03-17 13:02] LABS: Hematocrit 24.1 % (35.3-44.9); Hemoglobin 7.4 g/dL (11.5-15.4)
--- NOTE | 2018-03-17 13:18 | Discharge Summary ---
<Jackie Meyers - Last Filed: 03/17/18 13:34> - NOTES TO OUTPATIENT PROVIDER Notes to Outpatient Provider: Patient presented with anemia of 6.9 and required 1 unit PRBC transfusion. She will need her CBC checked at follow up. Orders not resulted at time of discharge: Pending orders 03/17/18 16:00 H/H [Hemoglobin and Hematocrit] [HEME] Q4H Date of Encounter: 03/17/18 Time of Encounter: 13:16 - Discharge Diagnosis (1) Anemia Priority: Primary Status: Suspected Qualifiers: Anemia type: iron deficiency Iron deficiency anemia type: chronic blood loss Qualified Code(s): D50.0 - Iron deficiency anemia secondary to blood loss (chronic) (2) Syncope Priority: Secondary Status: Acute Qualifiers: Syncope type: unspecified Qualified Code(s): R55 - Syncope and collapse (3) Menorrhagia Priority: Secondary Status: Chronic Qualifiers: Menorrahagia type: with irregular cycle Qualified Code(s): N92.1 - Excessive and frequent menstruation with irregular cycle (4) Mass of uterine cervix determined by ultrasound Priority: Secondary Status: Acute (5) Left ovarian cyst Priority: Secondary Status: Acute (6) Uterine fibroid Priority: Secondary Status: Acute Qualifiers: Uterine leiomyoma location: unspecified location Qualified Code(s): D25.9 - Leiomyoma of uterus, unspecified (7) HLD (hyperlipidemia) Priority: Secondary Status: Chronic Qualifiers: Hyperlipidemia type: unspecified Qualified Code(s): E78.5 - Hyperlipidemia, unspecified (8) Tobacco abuse Priority: Secondary Status: Chronic Hospital course: Ms. Plata is a 47 year old female who was admitted to the [facility] 03/16/2018 for anemia. Patient presented to the emergency department after her friend witnessed syncopal episode. Patient was reportedly sitting on the porch on smoking a cigarette and she experienced a syncopal episode lasted approximately 30 seconds in which she became limp and had LOC while sitting. Patient reported feeling palpitations, flushing and warm before passing out. She spontaneously regained consciousness and did not have any trauma, urinary or fecal incontinence, seizure activity or and did not hit her head. When she arrived to the ER she was found to have a hemoglobin of 6.9 and was subsequently transfused 1 unit of PRBCs. She reports a history of menorrhagia and is evaluated by her CONT[employer] SUPERVISOR at [facility] who sees her on 03/18/2018 to discuss D&C and endometrial biopsy. She also notes that she has received 5 units of PRBCs in January secondary to anemia due to menorrhagia. She also has been experiencing left-sided abdominal pain. She denies any vaginal bleeding, dark stools, hematemesis, hematuria or hematochezia. A CT of abdomen and pelvis was performed in the emergency department as there was concern for possible bleeding into the abdomen, which was negative. The patient was admitted for further monitoring of her hemoglobin and workup for her syncope. Transvaginal ultrasound of the abdomen and pelvis was performed that demonstrated a 6.7 cm x 3.8 cm x 2.8 cm lesion appearing centered in the uterine cervix, suspicious for cervical malignancy. Endometrial malignancy with cervical extension could appear similar; 4.1 cm x 2.8 cm x 2.9 cm simple left ovarian cyst is likely physiologic; and Uterine fibroids measuring up to 2.3 cm. The patient cannot remember if she has had an abnormal Pap smear, however she describes that her CONTINUOUS WELD PIPE M[employer] SUPERVISOR in [place] was attempting to perform an endometrial biopsy but was unable to because something was blocking the passage of the instrument into her cervix. She is scheduled on March 18 for a D&C and endometrial biopsy and further investigation of the mass in her cervix. The patient's hemoglobin has remained stable at 7.6 following transfusion. Carotid Doppler and echo were negative. LVEF 60-65% without any valvular abnormalities or wall motion abnormalities. She will be discharged home to follow up with her CONTINUOUS W[employer] PIPE M[employer] SUPERVISOR tomorrow and will require repeat hemoglobin. The patient will also be sent with a disc containing her ultrasound for her OB to review. Patient will be discharged in stable condition and states understanding and agreement with the plan. Discharge discussed with: patient, nurse - Time Spent with Patient Total time spent providing and/or coordinating discharge services: - Discharge Medications Prescriptions: Nicotine Patch [Nicoderm] 14 mg TD DAILY #30 patch.td24 Home Medications: Benzonatate [Tessalon] 200 mg PO TID PRN #20 capsule 02/17/18 [Rx] Ferrous Sulfate [High Potency Iron] 134 mg PO DAILY 02/17/18 [History] Magic Mouthwash [Magic Mouthwash BLM] 10 ml PO QID PRN #240 ml 02/17/18 [Rx] Nicotine Patch [Nicoderm] 14 mg TD DAILY #30 patch.td24 03/17/18 [Rx] Allergies/Adverse Reactions: Allergy/AdvReac Type Severity Reaction Status Date / Time gabapentin [From Neurontin] Allergy Difficulty Verified 02/17/18 15:10 Breathing sulfamethoxazole AdvReac See Verified 02/17/18 15:10 [From Bactrim] Comments trimethoprim [From Bactrim] AdvReac See Verified 02/17/18 15:10 Comments Date of admission: 03/16/18 20:55 Primary care physician: PCP NONE Consults: 03/16/18 17:23 Consult to Occupational Therapy [CONS] Routine Comment: Evaluate, develop and implement POC Reason for Consult: weakness Does patient have active BEDREST order?: No Is patient medically & hemodynamically stable?: Yes Patient assessed for mobility or mobilized this visit?: No Consult to Physical Therapy [CONS] Routine Comment: Evaluate, develop and implement POC Reason for Consult: weakness Does patient have active BEDREST order?: No Is patient medically & hemodynamically stable?: Yes Patient assessed for mobility or mobilized this visit?: No Discharging clinician: Jackie Meyers Anticipated date of discharge: 03/17/18 - Constitutional Vitals: Temp Pulse Resp BP Pulse Ox 98.2 F 63 16 122/75 97 03/17/18 12:36 03/17/18 12:36 03/17/18 12:36 03/17/18 12:36 03/17/18 12:36 General appearance: Present: cooperative, A&O X 3, pleasant, obese, answers questions appropriately Exam: General: alert and oriented, WD/WN in NAD HEENT: NC/AT, PERRLA, EOMI, mucous membranes dry, pale mucosa and conjunctiva Cardio: RRR w/o MRG, pulses 2+ Respiratory: LCTAB, no cyanosis or clubbing Abd: soft, mild tenderness with palpation of the LLQ, no guarding or rigidity, bs present Extremities: non-tender, no edema, pulses 2+ Skin: warm, dry, intact, pale Neuro: alert and oriented, no acute deficits Psych: normal mood and affect - Patient Status Disposition: Home, Self-Care Condition: Fair Functional capacity at discharge: independent ambulation Overall status at discharge: patient is progressing back to baseline - Discharge Instructions Instructions: Syncope (DC) Forms: ED Satisfaction Letter Additional Instructions: Follow up with your CONTINUOUS W[employer] P[employer] M[employer] SUPERVISOR as scheduled. - Diet and Activity Activity: increase activity as tolerated Diet: advance to your usual diet <Ten Solis - Last Filed: 03/17/18 15:05> Orders not resulted at time of discharge: Pending orders 03/17/18 16:00 H/H [Hemoglobin and Hematocrit] [HEME] Q4H Date of Encounter: 03/17/18 - Discharge Diagnosis (1) Anemia Status: Suspected Qualifiers: Anemia type: iron deficiency Iron deficiency anemia type: chronic blood loss Qualified Code(s): D50.0 - Iron deficiency anemia secondary to blood loss (chronic) (2) Syncope Status: Acute Qualifiers: Syncope type: unspecified Qualified Code(s): R55 - Syncope and collapse (3) Left ovarian cyst Status: Acute (4) HLD (hyperlipidemia) Status: Chronic Qualifiers: Hyperlipidemia type: mixed hyperlipidemia Qualified Code(s): E78.2 - Mixed hyperlipidemia (5) Menorrhagia Status: Chronic Qualifiers: Menorrahagia type: with irregular cycle Qualified Code(s): N92.1 - Excessive and frequent menstruation with irregular cycle (6) Tobacco abuse Status: Chronic Hospital course: Ms. Plata is a 47 year old female - Time Spent with Patient Total time spent providing and/or coordinating discharge services: Date of admission: 03/16/18 20:55 Primary care physician: PCP NONE Consults: 03/16/18 17:23 Consult to Occupational Therapy [CONS] Routine Comment: Evaluate, develop and implement POC Reason for Consult: weakness Does patient have active BEDREST order?: No Is patient medically & hemodynamically stable?: Yes Patient assessed for mobility or mobilized this visit?: No Consult to Physical Therapy [CONS] Routine Comment: Evaluate, develop and implement POC Reason for Consult: weakness Does patient have active BEDREST order?: No Is patient medically & hemodynamically stable?: Yes Patient assessed for mobility or mobilized this visit?: No - Constitutional Vitals: Temp Pulse Resp BP Pulse Ox 98.2 F 63 16 122/75 97 03/17/18 12:36 03/17/18 12:36 03/17/18 12:36 03/17/18 12:36 03/17/18 12:36 - Attending Attestation I examined this patient and my medical decision-making was reviewed with the Resident Physician on 03/17/18. I agree with the documented findings, disposition and treatment plan as described except to the extent set forth below. Ms Plata has been in observation due to anemia and syncope. She has received blood. She is still feeling a little dizzy but overall better. No CP or SOB. She has abnormal ultrasound of pelvis. She has follow up for D&C tomorrow in [place]. Exam alert Comfortable Mucus membranes dry Heart not tachy No wheeze No edema Normocephalic Moves all extremities Plan D/C home today Follow up with RETAIL MAINTENANCE TECHNICIAN as arranged
--- NOTE | 2018-03-18 00:03 | Electrocardiograph Report ---
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
== END 2018-03-17 15:53 | disposition home or self-care (01) ==
LOC: 3ANU 13:32 → EMEROOARM 13:32 → SUATTDRO 20:55 → 3ANU 21:24
PROVIDERS: ADMIT Internal Medicine; ATTEND Internal Medicine

== ENCOUNTER 2020-12-14 11:37 | Observation (INO) ==
[2020-12-14] MEDS ORDERED: Ondansetron 4 MG/2 ML VIAL IVP PRN (17:45)
[2020-12-14] MEDS ORDERED: Naloxone 0.4 MG/ML INJ IVP PRN (17:45)
[2020-12-14] MEDS: *HR* OxyCODONE/APAP 5/325 TABLET PO PRN (17:55)
[2020-12-14] MEDS ORDERED: Isovue-370 500 ML BOTTLE IVP ONE (19:28)
[2020-12-14] MEDS: *HR* HYDROmorphone (PF) 1 MG/ML SYRINGE IVP PRN (20:15)
[2020-12-14] MEDS: Piperacillin/Tazobactam 3.375 GM in 0.9 % Sodium Chloride Mini Bag 100 ML IVPB SCH (20:16)
[2020-12-15] MEDS ORDERED: Vancomycin 1,500 MG/265 ML IV.SOLN IVPB ONE
[2020-12-15] MEDS: *HR* OxyCODONE/APAP 5/325 TABLET PO PRN ×4 (00:13→23:28)
[2020-12-15 01:30] LABS: Hemoglobin 9.3 g/dL (11.5-15.4); Mean Corpuscular Hemoglobin 29.2 pg (28.0-33.3); Mean Corpuscular Volume 94.3 fL (83.0-100.0); Mean Platelet Volume 8.6 fL (9.4-12.4); Platelet Count 596 K/mcL (140-400); Red Blood Count 3.18 M/mcL (3.82-4.97); Red Cell Distribution Width 14.6 % (11.5-14.5); White Blood Count 10.1 K/mcL (4.3-11.1)
[2020-12-15 01:48] LABS: BUN/Creatinine Ratio 11 (6-26); Blood Urea Nitrogen 7 mg/dL (6-20); Calcium 8.5 mg/dL (8.6-10.3); Carbon Dioxide 27 mEq/L (23-29); Chloride 104 mEq/L (98-107); Glucose 127 mg/dL (70-105); Osmolality,Calculated 284 (280-300); Potassium 3.9 mEq/L (3.5-5.1); Sodium 137 mEq/L (136-145); eGFR For African Americans > 60 (> 60); eGFR For Non-African Americans > 60 (> 60)
[2020-12-15] MEDS ORDERED: Piperacillin/Tazobactam 3.375 GM VIAL ONE (04:55)
[2020-12-15] MEDS: Piperacillin/Tazobactam 3.375 GM in 0.9 % Sodium Chloride Mini Bag 100 ML IVPB SCH ×3 (05:07→19:55)
[2020-12-15] MEDS: *HR* Enoxaparin 40 MG/0.4 ML SYRINGE SQ SCH (05:08)
[2020-12-15] MEDS: Vancomycin 1,500 MG/265 ML IV.SOLN IVPB SCH ×2 (12:40→23:29)
[2020-12-15] MEDS: *HR* HYDROmorphone (PF) 1 MG/ML SYRINGE IVP PRN ×2 (13:34→19:49)
[2020-12-16 01:29] LABS: Hematocrit 30.4 % (35.3-44.9); Hemoglobin 9.2 g/dL (11.5-15.4); Mean Corpuscular HGB Conc 30.3 g/dL (31.6-35.5); Mean Corpuscular Hemoglobin 28.8 pg (28.0-33.3); Mean Corpuscular Volume 95.3 fL (83.0-100.0); Mean Platelet Volume 8.7 fL (9.4-12.4); Platelet Count 578 K/mcL (140-400); Red Blood Count 3.19 M/mcL (3.82-4.97); Red Cell Distribution Width 14.6 % (11.5-14.5); White Blood Count 10.4 K/mcL (4.3-11.1)
[2020-12-16 02:05] LABS: BUN/Creatinine Ratio 16 (6-26); Blood Urea Nitrogen 15 mg/dL (6-20); Calcium 8.6 mg/dL (8.6-10.3); Carbon Dioxide 30 mEq/L (23-29); Chloride 102 mEq/L (98-107); Glucose 85 mg/dL (70-105); Osmolality,Calculated 286 (280-300); Potassium 4.2 mEq/L (3.5-5.1); Sodium 138 mEq/L (136-145); eGFR For African Americans > 60 (> 60); eGFR For Non-African Americans > 60 (> 60)
[2020-12-16] MEDS: *HR* Enoxaparin 40 MG/0.4 ML SYRINGE SQ SCH (05:05)
[2020-12-16] MEDS: Piperacillin/Tazobactam 3.375 GM in 0.9 % Sodium Chloride Mini Bag 100 ML IVPB SCH ×3 (05:06→21:53)
[2020-12-16] MEDS: *HR* OxyCODONE/APAP 5/325 TABLET PO PRN ×3 (08:50→22:08)
[2020-12-16] MEDS: Vancomycin 1,500 MG/265 ML IV.SOLN IVPB SCH (12:13)
[2020-12-16] MEDS: *HR* HYDROmorphone (PF) 1 MG/ML SYRINGE IVP PRN (19:29)
[2020-12-17] MEDS: Vancomycin 1,500 MG/265 ML IV.SOLN IVPB SCH ×2 (00:32→13:05)
[2020-12-17 01:15] LABS: BUN/Creatinine Ratio 18 (6-26); Blood Urea Nitrogen 12 mg/dL (6-20); Carbon Dioxide 27 mEq/L (23-29); Chloride 102 mEq/L (98-107); Glucose 101 mg/dL (70-105); Osmolality,Calculated 284 (280-300); Sodium 137 mEq/L (136-145); eGFR For African Americans > 60 (> 60); eGFR For Non-African Americans > 60 (> 60)
[2020-12-17 01:58] LABS: Hematocrit 30.4 % (35.3-44.9); Hemoglobin 9.6 g/dL (11.5-15.4); Mean Corpuscular HGB Conc 31.6 g/dL (31.6-35.5); Mean Platelet Volume 8.6 fL (9.4-12.4); Platelet Count 562 K/mcL (140-400); Red Cell Distribution Width 14.4 % (11.5-14.5); White Blood Count 7.4 K/mcL (4.3-11.1)
[2020-12-17] MEDS: *HR* Enoxaparin 40 MG/0.4 ML SYRINGE SQ SCH (05:26)
[2020-12-17] MEDS: Piperacillin/Tazobactam 3.375 GM in 0.9 % Sodium Chloride Mini Bag 100 ML IVPB SCH ×2 (05:26→11:22)
[2020-12-17] MEDS: *HR* OxyCODONE/APAP 5/325 TABLET PO PRN ×2 (05:27→13:16)
[2020-12-17] MEDS: *HR* HYDROmorphone (PF) 1 MG/ML SYRINGE IVP PRN (09:25)
[2020-12-17 11:08] VITALS: BP 111/61; PULSE 57; TEMP 98.2; O2SAT 91
== END 2020-12-17 14:03 | disposition home or self-care (01) ==
LOC: 3ANU → SUATTDRO 14:24
PROVIDERS: ADMIT Internal Medicine; ATTEND Hospitalist